=== PATIENT | female | born 1930 | race Caucasian/White ===

== ENCOUNTER 2016-08-23 22:59 | Emergency (ER) | payer MEDICARE, OTHER ==
[~2016-08-23] VITALS: Ht 160 cm; Wt 49.9 kg
[~2016-08-23 22:59] MED LIST: ALBU0.5N2 IN; ASPI81CH43 PO; ATEN-60 PO; CHOL500021 PO; COEN400C8 PO; EZET10TA2 PO; FURO20TA PO; GUAI600T23 PO; LEVO75TA50 PO; MAGN400C3 PO; POTA10TA51 PO; ROSU20TA14 PO; TIOTCAP INH
[2016-08-24 01:43] LABS: Basophils # (auto) 0.3 uL; DEFINITIVE VIEW TRANSMISSION; Eosinophils # (auto) 0 uL; Eosinophils % (auto) 0.2 % (0.0-7.0); Hematocrit 29.5 % (36.0-46.0); Lymphocytes # (auto) 0.4 uL; Lymphocytes % (auto) 6.3 % (10.0-50.0); Mean Corpuscular Hemoglobin 26.9 pg (28.0-32.0); Mean Corpuscular Hgb Conc. 30.5 g/dL (32.0-36.0); Mean Corpuscular Volume 88.2 fL (80.0-100.0); Mean Platelet Volume 7.9 fL (7.4-10.4); Monocytes # (auto) 0.7 uL; Monocytes % (auto) 10.9 % (0.0-12.0); Neutrophils # (auto) 5.2 uL; Neutrophils % (auto) 78.6 % (37.0-80.0); Platelet Count (auto) 233 10^3/uL (140-450); Red Cell Distribution Width 15.9 % (11.6-16.0); SUSPECT VIEW TRANSMISSION; White Blood Cell 6.6 10^3/uL (4.4-10.8)
[2016-08-24 01:54] LABS: INR 1.08 (0.9-1.15); Partial Thromboplastin Time 22.7 sec (22.64-33.71); Prothrombin Time 11.1 sec (9.37-12.3)
[2016-08-24 01:56] LABS: Albumin 3.3 g/dL (3.4-5.0); BUN/Creatinine Ratio 26.8; Calcium 8.7 mg/dL (8.5-10.1); Potassium 3.7 mmol/L (3.5-5.1)
[2016-08-24 01:58] LABS: Bilirubin, Total 0.3 mg/dL (0.2-1.0); Total Protein 6.6 g/dL (6.4-8.2)
[2016-08-24] MEDS ORDERED: LORazepam 0.5 MG TAB PO ONE (03:00)
[2016-08-24 03:14] LABS: Temperature: 20.9 C (20.0-25.0)
[2016-08-24 05:34] VITALS: BP 118/77
== END 2016-08-24 05:15 | disposition home or self-care (01) ==
LOC: ER 22:59 → EDBD 22:59 → ER 08-24 05:15
DX: I11.0 Hypertensive heart disease with heart failure (principal); I50.23 Acute on chronic systolic (congestive) heart failure; J44.1 Chronic obstructive pulmonary disease with (acute) exacerbation; I25.10 Atherosclerotic heart disease of native coronary artery without angina pectoris; E11.9 Type 2 diabetes mellitus without complications; E03.9 Hypothyroidism, unspecified; F03.90 Unspecified dementia, unspecified severity, without behavioral disturbance, psychotic disturbance, mood disturbance, and anxiety; R41.82 Altered mental status, unspecified; Z79.899 Other long term (current) drug therapy
CPT/HCPCS: 36415; 71010; 80053; 83880; 84443; 84484; 85025; 85379; 85610; 85730; 93005